=== PATIENT | female | born 1990 | race Caucasian/White ===

== ENCOUNTER 2017-02-26 14:45 | Emergency (ER) | payer OTHER ==
--- NOTE | 2017-02-26 15:21 | UC ---
Throat Pain/Nasal César HPI - HPI Summary HPI Summary: sore throat, head congested, watery eyes, no fevers has been going for 3 days - History of Current Complaint Chief Complaint: UCRespiratory Stated Complaint: SORE THROAT,BLURRY VISION Time Seen by Provider: 02/26/17 15:08 Hx Obtained From: Patient Hx Last Menstrual Period: iud fell out? ?: No Onset/Duration: Sudden Onset, Lasting Days - 3, Still Present Severity: Moderate Pain Intensity: 5 Pain Scale Used: 0-10 Numeric Cough: Nonproductive Associated Signs & Symptoms: Positive: Nasal Discharge - Allergies/Home Medications Allergies/Adverse Reactions: Allergies Allergy/AdvReac Type Severity Reaction Status Date / Time No Known Allergies Allergy Verified 10/18/16 10:45 PMH/Surg Hx/FS Hx/Imm Hx Previously Healthy: No GI/ History Of: Reports: Gastroesophageal Reflux - Surgical History Surgical History: Yes Surgery Procedure, Year, and Place: tonsils; adenoids; tubes in ears 4 times. D &C - Family History Known Family History: Positive: None, Hypertension - Social History Occupation: Unemployed Lives: With Family Alcohol Use: None Substance Use Type: None Smoking Status (MU): Light Every Day Tobacco Smoker Type: Cigarettes Amount Used/How Often: 6 cig a day Length of Time of Smoking/Using Tobacco: 11 years Cessation Counseling: Patient Advised to Stop - Immunization History Most Recent Influenza Vaccination: 2012 Review of Systems Constitutional: Fatigue Skin: Negative Eyes: Negative, Drainage - clear ENT: Sore Throat, Ear Ache, Nasal Discharge Respiratory: Cough Cardiovascular: Negative Gastrointestinal: Negative Genitourinary: Negative Motor: Negative Neurovascular: Negative Musculoskeletal: Negative Neurological: Negative Psychological: Negative All Other Systems Reviewed And Are Negative: Yes Physical Exam Triage Information Reviewed: Yes Appearance: Well-Appearing, No Pain Distress, Obese Vital Signs: Initial Vital Signs Temp 97.4 F 02/26/17 15:04 Pulse 98 02/26/17 15:04 Resp 18 02/26/17 15:04 Pulse Ox 98 02/26/17 15:04 Vital Signs Reviewed: Yes Eye Exam: Normal Eyes: Positive: Conjunctiva Clear ENT Exam: Normal ENT: Positive: Normal ENT inspection, Hearing grossly normal, Pharynx normal, Nasal congestion, Nasal drainage, TMs normal. Negative: Tonsillar swelling, Tonsillar exudate, Trismus, Muffled/hoarse voice Dental Exam: Normal Neck exam: Normal Neck: Positive: Supple, Nontender, No Lymphadenopathy Respiratory Exam: Normal Respiratory: Positive: Chest non-tender, Lungs clear, Normal breath sounds, No respiratory distress, No accessory muscle use Cardiovascular Exam: Normal Cardiovascular: Positive: RRR, No Murmur, Pulses Normal, Brisk Capillary Refill Musculoskeletal Exam: Normal Musculoskeletal: Positive: Strength Intact, ROM Intact, No Edema Neurological Exam: Normal Neurological: Positive: Alert, Muscle Tone Normal Psychological Exam: Normal Skin Exam: Normal Diagnostics - Laboratory Diagnostic Studies Completed/Ordered: u preg (-), RST (-) Throat Pain/Nasal Course/Dx - Course Assessment/Plan: flonase, mucinex D, increase fluids, follow with pcp - Differential Dx/Diagnosis Differential Diagnosis/HQI/PQRI: Laryngitis, Pharyngitis, Sinusitis, URI Provider Diagnoses: Allergic Rhinitis Discharge - Discharge Plan Condition: Stable Disposition: HOME Prescriptions: Cetirizine-Pseudoephedrine [Zyrtec-D Allergy/Congesti] 1 tab PO BID #30 tab Fluticasone NASAL SPRAY 50MCG* [Flonase NASAL SPRAY 50MCG*] 2 spray BOTH NARES DAILY #1 btl Patient Education Materials: Decongestant/Expectorant (By mouth), Allergic Rhinitis (ED), How to Use Nasal Weldon (ED) Referrals: Shyann Farr PA [Primary Care Provider] - 4 Days
== END 2017-02-26 16:16 | disposition home or self-care (01) ==
LOC: UCEAST 14:45
DX: J30.9 Allergic rhinitis, unspecified (principal); K21.9 Gastro-esophageal reflux disease without esophagitis; F17.210 Nicotine dependence, cigarettes, uncomplicated
CPT/HCPCS: 84702; 87651; 99212; G0463

== ENCOUNTER 2017-07-12 14:47 | Inpatient (IN) | payer OTHER ==
[2017-07-12 16:16] LABS: Hematocrit 42 % (35-47); Hemoglobin 13.9 g/dl (12.0-16.0); Mean Corpuscular HGB Conc 33 g/dl (31-36); Mean Corpuscular Hemoglobin 28 pg (27-31); Mean Corpuscular Volume 84 fL (80-97); Mean Platelet Volume 9 um3 (7.4-10.4); Red Blood Count 5.01 10^6/ul (4.0-5.4); Red Cell Distribution Width 14 % (10.5-15); White Blood Count 7.9 10^3/ul (3.5-10.8)
[2017-07-12 16:31] LABS: ALT 28 U/L (7-52); AST 19 U/L (13-39); Albumin 4.3 g/dL (3.2-5.2); Alkaline Phosphatase 71 U/L (34-104); Anion Gap 6 mmol/L (2-11); BUN/Creatinine Ratio 13.3 (8-20); Blood Urea Nitrogen 10 mg/dL (6-24); CO2 Carbon Dioxide 27 mmol/L (22-32); Calcium 9.4 mg/dL (8.6-10.3); Chloride 102 mmol/L (101-111); EGFR African American 119.2 (>60); EGFR Non-African American 92.7 (>60); Globulin 3.2 g/dL (2-4); Glucose 93 mg/dL (70-100); Potassium 3.7 mmol/L (3.5-5.0); Sodium 135 mmol/L (133-145); Total Protein 7.5 g/dL (6.4-8.9)
[2017-07-12 16:33] LABS: Urine Bacteria Absent (Absent); Urine Bilirubin Negative (Negative); Urine Glucose Negative (Negative); Urine Nitrite Negative (Negative)
[2017-07-12 16:51] LABS: Benzodiazepine Urine Screen None Detected (None Detect)
[2017-07-12 16:52] LABS: Acetaminophen < 15 mcg/mL; Alcohol < 10 mg/dL (<10); Salicylate < 2.50 mg/dL (<30)
[2017-07-12 16:59] LABS: TSH (Thyroid Stimulating Horm) 1.85 mcIU/mL (0.34-5.60)
[2017-07-12] MEDS ORDERED: Acetaminophen TAB* 325 MG PO ONE (17:14)
--- NOTE | 2017-07-12 17:14 | ED ---
Psychiatric Complaint - HPI Summary HPI Summary: Patient presents to the ED with CC of depression and anxiety which has been worsening over the last few months. She takes prozac daily but has been out for a few months d/t insurance. She also is not currently seeing a therapist or psychiatrist. Denies SI/HI currently but has experienced thoughts and attempts of suicide in the past including running out in front of a car, attempt at hanging herself and other thoughts which she has not yet attempted. Denies any plan today. Denies any self harm. She takes multiple medications, but is currently not on her prozac or her trazodone. Notes to difficulty sleeping. Physical pain includes HECTOR and she is requesting tylenol. - History Of Current Complaint Chief Complaint: EDMentalHealth Time Seen by Provider: 07/12/17 15:11 Hx Obtained From: Patient Hx Last Menstrual Period: iud fell out? ?: No Onset/Duration: Gradual Onset Timing: Constant Severity Initially: Moderate Severity Currently: Moderate Character: Depressed, Anxious Aggravating Factor(s): Medication Non-compliance - does not currently have a rx Related History: Positive For: Prior Psychiatric Issues Has Suicidal: Reports: Thoughts, Has Prior Attempt(s) - Risk Factor(s) Completed Suicide Risk Factors: White [place]ian, Unemployed, Past Suicide Attempt - Allergies/Home Medications Allergies/Adverse Reactions: Allergies Allergy/AdvReac Type Severity Reaction Status Date / Time No Known Allergies Allergy Verified 10/18/16 10:45 PMH/Surg Hx/FS Hx/Imm Hx Previously Healthy: Yes - Surgical History Surgery Procedure, Year, and Place: tonsils; adenoids; tubes in ears 4 times. D &C - Immunization History Hx Pertussis Vaccination: No Immunizations Up to Date: Unable to Obtain/Confirm Infectious Disease History: No Infectious Disease History: Denies: Traveled Outside the [place] in Last 30 Days - Family History Known Family History: Positive: None, Hypertension - Social History Occupation: Unemployed Lives: With Family Alcohol Use: None Hx Substance Use: No Substance Use Type: Reports: None Hx Tobacco Use: Yes Smoking Status (MU): Light Every Day Tobacco Smoker Type: Cigarettes Amount Used/How Often: 6 cig a day Length of Time of Smoking/Using Tobacco: 11 years Review of Systems Constitutional: Negative Negative: Fever, Chills, Fatigue ENT: Negative Respiratory: Negative Gastrointestinal: Negative Positive: no symptoms reported, see HPI Musculoskeletal: Negative Positive: Headache Positive: Anxious, Depressed All Other Systems Reviewed And Are Negative: Yes Physical Exam Triage Information Reviewed: Yes Vital Signs On Initial Exam: Initial Vitals Temp Pulse Resp BP Pulse Ox 97.9 F 86 20 171/91 98 07/12/17 15:07 07/12/17 15:07 07/12/17 15:07 07/12/17 15:07 07/12/17 15:07 Vital Signs Reviewed: Yes Appearance: Positive: Well-Appearing, Well-Nourished Skin: Positive: Warm, Skin Color Reflects Adequate Perfusion Head/Face: Positive: Normal Head/Face Inspection Eyes: Positive: EOMI, CLAUDY, Conjunctiva Clear Neck: Positive: Supple, No Lymphadenopathy Respiratory/Lung Sounds: Positive: Clear to Auscultation, Breath Sounds Present Cardiovascular: Positive: RRR, Pulses are Symmetrical in both Upper and Lower Extremities Musculoskeletal: Positive: Normal, Strength/ROM Intact Neurological: Positive: Speech Normal Psychiatric: Positive: Normal - Antonieta Coma Scale Coma Scale Total: 15 Diagnostics - Vital Signs Vital Signs Temp Pulse Resp BP Pulse Ox 07/12/17 16:52 98.2 F 76 16 140/87 99 07/12/17 16:10 98.5 F 93 16 132/92 98 07/12/17 15:07 97.9 F 86 20 171/91 98 - Laboratory Lab Results: Lab Results 07/12/17 07/12/17 07/12/17 Range/Units 15:10 15:10 16:05 WBC (3.5-10.8) 10^3/ul RBC (4.0-5.4) 10^6/ul Hgb (12.0-16.0) g/dl Hct (35-47) % MCV (80-97) fL MCH (27-31) pg MCHC (31-36) g/dl RDW (10.5-15) % Plt Count (150-450) 10^3/ul MPV (7.4-10.4) um3 Neut % (Auto) (38-83) % Lymph % (Auto) (25-47) % [place] % (Auto) (1-9) % Eos % (Auto) (0-6) % Baso % (Auto) (0-2) % Absolute Neuts (auto) (1.5-7.7) 10^3/ul Absolute Lymphs (auto) (1.0-4.8) 10^3/ul Absolute Monos (auto) (0-0.8) 10^3/ul Absolute Eos (auto) (0-0.6) 10^3/ul Absolute Basos (auto) (0-0.2) 10^3/ul Absolute Nucleated RBC 10^3/ul Nucleated RBC % Sodium 135 (133-145) mmol/L Potassium 3.7 (3.5-5.0) mmol/L Chloride 102 (101-111) mmol/L Carbon Dioxide 27 (22-32) mmol/L Anion Gap 6 (2-11) mmol/L BUN 10 (6-24) mg/dL Creatinine 0.75 (0.51-0.95) mg/dL Est GFR ( Amer) 119.2 (>60) Est GFR (Non-Af Amer) 92.7 (>60) BUN/Creatinine Ratio 13.3 (8-20) Glucose 93 (70-100) mg/dL Calcium 9.4 (8.6-10.3) mg/dL Total Bilirubin 0.40 (0.2-1.0) mg/dL AST 19 (13-39) U/L ALT 28 (7-52) U/L Alkaline Phosphatase 71 (34-104) U/L Total Protein 7.5 (6.4-8.9) g/dL Albumin 4.3 (3.2-5.2) g/dL Globulin 3.2 (2-4) g/dL Albumin/Globulin Ratio 1.3 (1-3) TSH 1.85 (0.34-5.60) mcIU/mL Urine Color Straw Urine Appearance Clear Urine pH 7.0 (5-9) Ur Specific [place] 1.010 (1.010-1.030) Urine Protein Negative (Negative) Urine Ketones Negative (Negative) Urine Blood Negative (Negative) Urine Nitrate Negative (Negative) Urine Bilirubin Negative (Negative) Urine Urobilinogen Negative (Negative) Ur Leukocyte Esterase Trace H (Negative) Urine WBC (Auto) Trace(0-5/hpf) (Absent) Urine RBC (Auto) Absent (Absent) Ur Squamous Epith Cells Present H (Absent) Urine Bacteria Absent (Absent) Urine Glucose Negative (Negative) Salicylates < 2.50 (<30) mg/dL Urine Opiates Screen None detected (None Detect) Acetaminophen < 15 mcg/mL Ur Barbiturates Screen None detected (None Detect) Ur Phencyclidine Scrn None detected (None Detect) Ur Amphetamines Screen None detected (None Detect) U Benzodiazepines Scrn None detected (None Detect) Urine Cocaine Screen None detected (None Detect) U Cannabinoids Screen Presumptive positive H (None Detect) Serum Alcohol < 10 (<10) mg/dL 07/12/17 Range/Units 16:05 WBC 7.9 (3.5-10.8) 10^3/ul RBC 5.01 (4.0-5.4) 10^6/ul Hgb 13.9 (12.0-16.0) g/dl Hct 42 (35-47) % MCV 84 (80-97) fL MCH 28 (27-31) pg MCHC 33 (31-36) g/dl RDW 14 (10.5-15) % Plt Count 241 (150-450) 10^3/ul MPV 9 (7.4-10.4) um3 Neut % (Auto) 63.3 (38-83) % Lymph % (Auto) 26.8 (25-47) % [place] % (Auto) 4.0 (1-9) % Eos % (Auto) 5.4 (0-6) % Baso % (Auto) 0.5 (0-2) % Absolute Neuts (auto) 5.0 (1.5-7.7) 10^3/ul Absolute Lymphs (auto) 2.1 (1.0-4.8) 10^3/ul Absolute Monos (auto) 0.3 (0-0.8) 10^3/ul Absolute Eos (auto) 0.4 (0-0.6) 10^3/ul Absolute Basos (auto) 0 (0-0.2) 10^3/ul Absolute Nucleated RBC 0.04 10^3/ul Nucleated RBC % 0.5 Sodium (133-145) mmol/L Potassium (3.5-5.0) mmol/L Chloride (101-111) mmol/L Carbon Dioxide (22-32) mmol/L Anion Gap (2-11) mmol/L BUN (6-24) mg/dL Creatinine (0.51-0.95) mg/dL Est GFR ( Amer) (>60) Est GFR (Non-Af Amer) (>60) BUN/Creatinine Ratio (8-20) Glucose (70-100) mg/dL Calcium (8.6-10.3) mg/dL Total Bilirubin (0.2-1.0) mg/dL AST (13-39) U/L ALT (7-52) U/L Alkaline Phosphatase (34-104) U/L Total Protein (6.4-8.9) g/dL Albumin (3.2-5.2) g/dL Globulin (2-4) g/dL Albumin/Globulin Ratio (1-3) TSH (0.34-5.60) mcIU/mL Urine Color Urine Appearance Urine pH (5-9) Ur Specific [place] (1.010-1.030) Urine Protein (Negative) Urine Ketones (Negative) Urine Blood (Negative) Urine Nitrate (Negative) Urine Bilirubin (Negative) Urine Urobilinogen (Negative) Ur Leukocyte Esterase (Negative) Urine WBC (Auto) (Absent) Urine RBC (Auto) (Absent) Ur Squamous Epith Cells (Absent) Urine Bacteria (Absent) Urine Glucose (Negative) Salicylates (<30) mg/dL Urine Opiates Screen (None Detect) Acetaminophen mcg/mL Ur Barbiturates Screen (None Detect) Ur Phencyclidine Scrn (None Detect) Ur Amphetamines Screen (None Detect) U Benzodiazepines Scrn (None Detect) Urine Cocaine Screen (None Detect) U Cannabinoids Screen (None Detect) Serum Alcohol (<10) mg/dL Result Diagrams: 07/12/17 16:05 07/12/17 16:05 Lab Statement: Any lab studies that have been ordered have been reviewed, and results considered in the medical decision making process. Course/Dx - Course Course Of Treatment: Patient evaluted for recent stressors, medication non- compliance and depression and anxiety. She notes to a HECTOR. Tylenol given 650mg. - Differential Dx/Clinical Impression Differential Diagnosis/HQI/PQRI: Positive: Anxiety, Depression, Suicidal Ideation Provider Diagnosis: Depression Discharge - Discharge Plan Condition: Stable Disposition: OTHER Discharge Disposition Comment: to flex unit
[2017-07-13] MEDS ORDERED: Acetaminophen TAB* 325 MG ONE (00:04)
[2017-07-13] MEDS ORDERED: chlorproMAZINE TAB* 50 MG ONE (00:04)
[2017-07-13] MEDS ORDERED: diPHENhydraMINE PO* 50 MG ONE (00:04)
[2017-07-13] MEDS ORDERED: Al Hydrox/Mg Hydrox/Simet LIQ* 30 ML UDC PO PRN (01:18)
[2017-07-13] MEDS ORDERED: Mouth Piece, Nicotine* 1 EACH CARTRIDGE INH SCH (01:18)
[2017-07-13] MEDS ORDERED: chlorproMAZINE TAB* 50 MG Q6H PRN AGITATION PO (01:18)
[2017-07-13] MEDS ORDERED: Nicotine Inhaler* 10 MG AMP INH PRN (01:18)
[2017-07-13] MEDS ORDERED: Nicotine GUM* 2 MG PO PRN (01:18)
[2017-07-13] MEDS: Vitamin THERAPEUTIC TAB PO SCH (10:23)
[2017-07-13] MEDS ORDERED: traZODone TAB* 50 MG TAB PO PRN (12:19)
[2017-07-13] MEDS: Acetaminophen TAB* 325 MG PO PRN (12:33)
[2017-07-13] MEDS: FLUoxetine CAP* 20 MG PO SCH (13:23)
[2017-07-13] MEDS: Fluticasone NASAL SPRAY 50MCG* 16 gm SPRAY BTL BOTH NARES SCH (13:23)
[2017-07-13] MEDS: Cetirizine* 10 MG TAB PO SCH (13:23)
[2017-07-13] MEDS: Omeprazole CAP* 20 MG PO SCH ×2 (13:23→20:40)
[2017-07-13] MEDS: Topiramate TAB(*) 25 MG PO SCH ×2 (13:23→20:40)
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
[2017-07-14] MEDS: Acetaminophen TAB* 325 MG PO PRN (06:38)
[2017-07-14] MEDS: Fluticasone NASAL SPRAY 50MCG* 16 gm SPRAY BTL BOTH NARES SCH (10:14)
[2017-07-14] MEDS: FLUoxetine CAP* 20 MG PO SCH (10:14)
[2017-07-14] MEDS: Omeprazole CAP* 20 MG PO SCH ×2 (10:15→20:50)
[2017-07-14] MEDS: Cetirizine* 10 MG TAB PO SCH (10:15)
[2017-07-14] MEDS: Vitamin THERAPEUTIC TAB PO SCH (10:15)
[2017-07-14] MEDS: Topiramate TAB(*) 25 MG PO SCH ×2 (10:15→20:50)
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
[2017-07-15] MEDS: Fluticasone NASAL SPRAY 50MCG* 16 gm SPRAY BTL BOTH NARES SCH (08:38)
[2017-07-15] MEDS: Omeprazole CAP* 20 MG PO SCH (08:40)
[2017-07-15] MEDS: FLUoxetine CAP* 20 MG PO SCH (08:40)
[2017-07-15] MEDS: Cetirizine* 10 MG TAB PO SCH (08:40)
[2017-07-15] MEDS: Topiramate TAB(*) 25 MG PO SCH (08:41)
[2017-07-15] MEDS: Vitamin THERAPEUTIC TAB PO SCH (08:41)
[2017-07-15 08:50] VITALS: BP 142/86
--- NOTE | 2017-07-15 15:44 | CONS ---
PSYCHOLOGICAL REPORT: DATE OF CONSULTATION: 07/15/17. REASON FOR REFERRAL: Flori was referred for psychological testing secondary to concerns regarding characterological vulnerabilities and severity of depression. TESTS ADMINISTERED: Flori completed the [place] Multiphasic Personality Inventory-2 (MMPI-2), and was given feedback regarding testing results in individual conversation. BEHAVIORAL OBSERVATIONS: Flori is a 27-year-old obese female who presents with increasing emotion duress which was exacerbated by problematic relationship with her biological mother. Her mother has custody of her son, which is a complicated factor in the family dynamics. Currently Flori is expressing hopes of establishing better boundaries between she and her mother describing how she intends to live with her boyfriend, but remains constrained in her relationship with her mother secondary to access to her son. Flori describes how her mother treats her son quite well, but is very condescending to her and insulting at times. Flori presents with good affect and exhibits appropriate variation in affect. She is hard of hearing, so conversation needs to be quite direct in order for her to understand comments. 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 She expressed hopes of attaining a GED and returning to the work force when she is able. Flori clearly described better managing depression when she was gainfully employed, and currently describes her strained relationship with her mother as her primary difficulty in managing depressive features. Presently, she denies experiencing suicidal affect and as stated spontaneously describes her social goals and interest. TEST RESULTS: Flori elevates the 3 emotional duress scales on validity indicators of the MMPI-2 obtaining T-scores between 78 and 90. She concomitantly has extreme basal scores occurring on emotional coping and self- esteem scales with T-scores here ranging between 32 and 34. She elevates the depression scale as well as the anxiety scale to similar degrees (T=67) and has somewhat higher elevation on the schizophrenia scale (T=72). She also has minor elevations on psychopathic deviate and social introversion scales. IMPRESSION AND RECOMMENDATIONS: Discussion with Flori addressed depression and anxiety in forthright fashion, describing how her endorsement of cynical and pessimistic thoughts and feelings may be the etiology of her difficulties. Likewise, further discussion addressed the very low scoring on emotional coping and self-esteem scales, with feedback addressing the importance of finding ways to improve self image and sense of competencies. This led to discussion regarding her vocational interest and how she has done better historically when she was working. Concerns regarding lethality impresses as being ameliorated presently with her manageable endorsement occurring on the depression scale as well as the presentation. She impresses as having good insight regarding the self-esteem concerns and relates family duress as a contributing factor in this regard. Continuing treatment may do well to address remote historical difficulties and family origin, which are likely to reveal some posttraumatic stress type problems. Diagnostic impression support PTSD as well as historical diagnosis of a bipolar 2 disorder. Hearing loss remains problematic as well as psychosocial stressors secondary to living situations and financial strain. Flori impresses as a good candidate to benefit from emotionally supportive psychotherapies and treatment modalities. [id number]/CPS #: [id number] MTDD
--- NOTE | 2017-07-16 07:35 | DS ---
AMENDED REPORT NOW INCLUDES COSIGNER DESIGNATION - ESIGNED BEFORE ADJUSTMENTS CC: Dr. Bliss; [facility] * DISCHARGE SUMMARY: DATE OF ADMISSION: 07/12/17 DATE OF DISCHARGE: 07/15/17 SUPERVISING PSYCHIATRIST: Dr. Nicola Dye * (DICTATED BY CATRINA STYLES) DISCHARGE DIAGNOSES: [place] I: Major depressive disorder, posttraumatic stress disorder; cannabis use disorder. [place] II: Deferred. [place] III: Obesity, gastroesophageal reflux disease, and hard of hearing. [place] IV: Stressors related to housing and financial strain, interpersonal relationships. [place] V: 60. CONDITION AT TIME OF DISCHARGE: Improved. The patient reports she is "excited to leave." While on the unit, she had discussed housing situations with both a friend of hers and with her boyfriend. She states she has researched ways in order to no longer have to live with her mother. She has identified coping skills to use when anxious including listening music, crocheting, cleaning, using coloring books, and going for walks. She denies suicidal ideation. She denies depression. She reports anxiety, strictly related to discharge planning and transportation. She is informed that she can leave anytime today depending on when her friend can pick her up. She and her friend decided upon 1 p.m. MENTAL STATUS EXAM: The patient is well-groomed, wearing eye makeup, hair is pulled back into a ponytail. She is wearing her own clothing. She is cooperative and pleasant, talkative. She is alert and oriented x3. Her concentration is good. Her recall is 3/3. Her mood is "excited." Her affect is full range. Her speech is rapid and loud volume, which is baseline for her due to hard of hearing. Thought process is circumstantial in regards to being able to leave and move out of her mother's home. Content of thought is negative for AV hallucinations, SI, HI, and . Her insight is good, her judgment is fair. Fund of knowledge is good. DISCHARGE MEDICATIONS: Instructions are given to the patient by nursing staff. The following medications were electronically prescripted to the [facility] in [place]: 1. Zyrtec-D one tab daily. 2. Fluoxetine 40 mg daily. 3. Flonase nasal spray, 2 sprays both nares daily. 4. Omeprazole 20 mg b.i.d. before meals. 5. Topiramate 50 mg p.o. b.i.d. 6. Trazodone 50 mg p.o. at bedtime p.r.n. insomnia. DIET: Regular. ACTIVITY: Ambulation as tolerated. Tobacco cessation declined by the patient. There are no pending labs or diagnostic studies at the time of discharge. FOLLOWUP CARE: The patient was given appointments from planner schedulerBianca. She will follow up at [facility] and has an appointment on 07/22/17, at 10. a.m. with Amelie Clifford. She will follow up with Dr. Bliss on 07/26/17, at 9:30 a.m. HOSPITAL COURSE: A. Reason for admission: The patient presented to the emergency room with increased depressive symptoms, vague SI, and she denied to give contact information to obtain collateral with her mother. Therefore, level of safety at discharge could not be determined. The patient was admitted on status to behavioral services unit for immediate safety as she was not okay. B. Psychiatric treatment rendered: The patient was admitted to the behavioral services unit and converted to voluntary status. Her code status was full. She was placed on 15-minute checks for safety. She was encouraged to participate in supportive milieu and individual and group psychoeducation. She agreed to reinstate her most recent outpatient medications that she had not been taking them consistently. She reported barriers with access to mental health and medical care. She states that she has had a lapse in Medicaid insurance, but this has since been resolved. She agreed to follow up with [facility] and her primary care provider. Observation status was decreased to q.30-minute observation. She was allowed to go on staff pass. She spoke with her boyfriend and her friend about her primary stressor of living with her mother. She is expecting to move to her boyfriend' s apartment and has verified with the landlord that this is allowed. She will also check with boyfriend's [address] to see if she can move in with him permanently. The patient was safe on all checks. She denied suicidal ideation. She participated in programming and she reported readiness for discharge. She identified a friend who could give her a ride and pick her up and was given discharge instructions by the nursing staff. WALLACE ESPARZA NP [id number]/[facility] #: [id number] [facility] HOSPITALSandip
== END 2017-07-15 13:15 | disposition home or self-care (01) | DRG 754 ==
LOC: ED 14:47 → BSU 07-13 01:01
PROVIDERS: ADMIT Psychiatry & Neurology Psychiatry; ATTEND Psychiatry & Neurology Psychiatry
DX: F32.9 Major depressive disorder, single episode, unspecified (principal); E66.01 Morbid (severe) obesity due to excess calories; R45.851 Suicidal ideations; F43.10 Post-traumatic stress disorder, unspecified; F12.10 Cannabis abuse, uncomplicated; K21.9 Gastro-esophageal reflux disease without esophagitis; F17.210 Nicotine dependence, cigarettes, uncomplicated; Z68.39 Body mass index [BMI] 39.0-39.9, adult; Z79.899 Other long term (current) drug therapy; Z81.1 Family history of alcohol abuse and dependence; Z81.8 Family history of other mental and behavioral disorders
CPT/HCPCS: 36415; 80053; 80307; 80320; 80329; 81003; 81015; 84443; 85025; 87077; 87086; 87186; 99406; A9270-GY; G0480

== ENCOUNTER 2017-10-29 19:33 | Emergency (ER) | payer OTHER ==
[2017-10-29] MEDS ORDERED: Ondansetron INJ* 2 MG/ML VIAL IV ONE (20:22)
[2017-10-29] MEDS ORDERED: NS 0.9% 1000 ML* 2,000 ML IV ONE (20:22)
[2017-10-29 21:35] LABS: Urine Bacteria 3+ (Absent); Urine Bilirubin Negative (Negative); Urine Glucose Negative (Negative); Urine Nitrite Negative (Negative)
--- NOTE | 2017-10-29 21:35 | RAD ---
Indication: Upper abdominal pain. Real-time sonography of the right upper quadrant was performed. The liver measures 22 cm in length and is enlarged. It is diffusely increased in echogenicity consistent with hepatic steatosis. No focal lesions or intrahepatic ductal dilatation is noted. The gallbladder demonstrates no gallstones, pericholecystic fluid or wall thickening. The common duct measures 5 mm. Right kidney measures 12.3 x 5.5 x 4.8 cm with no hydronephrosis. The pancreas head, neck and proximal body demonstrates no mass or pancreatic duct dilatation. IMPRESSION: Hepatomegaly. Diffusely increased echogenicity of the liver consistent with hepatic steatosis. No evidence of cholelithiasis or biliary duct dilatation is noted.
[2017-10-29 22:22] LABS: Hematocrit 38 % (35-47); Hemoglobin 12.7 g/dl (12.0-16.0); Mean Corpuscular HGB Conc 33 g/dl (31-36); Mean Corpuscular Hemoglobin 28 pg (27-31); Mean Corpuscular Volume 84 fL (80-97); Mean Platelet Volume 9 um3 (7.4-10.4); Red Blood Count 4.56 10^6/ul (4.0-5.4); Red Cell Distribution Width 14 % (10.5-15); White Blood Count 8.4 10^3/ul (3.5-10.8)
[2017-10-29 22:29] LABS: ALT 19 U/L (7-52); Albumin 4.2 g/dL (3.2-5.2); Alkaline Phosphatase 70 U/L (34-104); BUN/Creatinine Ratio 13.3 (8-20); Blood Urea Nitrogen 12 mg/dL (6-24); C Reactive Protein 9.03 mg/L (< 5.00); CO2 Carbon Dioxide 27 mmol/L (22-32); Calcium 9.3 mg/dL (8.6-10.3); Chloride 102 mmol/L (101-111); EGFR African American 96.6 (>60); EGFR Non-African American 75.1 (>60); Globulin 3.3 g/dL (2-4); Glucose 110 mg/dL (70-100); Lipase 14 U/L (11.0-82.0); Sodium 136 mmol/L (133-145); Total Protein 7.5 g/dL (6.4-8.9)
[2017-10-29 23:08] LABS: Anion Gap 7 mmol/L (2-11)
[2017-10-29] MEDS ORDERED: Sulfamethox/Trimethoprim DS 800/160* TAB PO ONE ×2 (23:13→23:14)
[2017-10-29] MEDS ORDERED: O ndansetron ODT 4MG 2TAB PRPK 4 MG PAK PO ONE (23:15)
--- NOTE | 2017-10-29 23:20 | ED ---
Magen Roy Natalie, scribed for Amado Hilario MD on 10/29/17 at 2027 . Abdominal Pain/Female - HPI Summary HPI Summary: The pt is a 27 y/o F presenting to the ED c/o diarrhea since 10/26/17 and abd pain starting this afternoon. The pain is in epigastric region and lower abd while going to the bathroom. The pain is rated 9/10. The pain is aggravated by nothing and is alleviated after going to the bathroom. She has had diarrhea four times today with having to stay in the bathroom for an hour at a time. The diarrhea is described as being loose without blood. Pt additionally c/o nausea, vomiting, lightheadedness, back pain, dysuria, and decreased appetite. The pt also hurt her right ankle after tripping on a rock. She has hx of GERD. She has never had an appendectomy or gallbladder removal. Her LNMP 10/20/17. - History of Current Complaint Chief Complaint: EDNauseaVomitDiarrh Stated Complaint: DIARRHEA X4 DAYS, RIGHT FOOT INJURY Time Seen by Provider: 10/29/17 20:11 Hx Obtained From: Patient Hx Last Menstrual Period: iud fell out? Onset/Duration: Lasting Days - diarrhea started on 10/26/17, abd pain started today, Still Present Timing: Constant Severity Initially: Severe Severity Currently: Severe Pain Intensity: 9 Pain Scale Used: 0-10 Numeric Location: Epigastric Character: Other: - "needlesticks and razor blades" Aggravating Factor(s): Nothing Alleviating Factor(s): Bowel Movement Associated Signs and Symptoms: Positive: Back Pain, Urinary Symptoms - dysuria, Decreased Appetite, Nausea, Vomiting, Diarrhea, Other: - POSITIVE: lightheadedness, edema in right ankle. Negative: Blood in Stool Allergies/Adverse Reactions: Allergies Allergy/AdvReac Type Severity Reaction Status Date / Time No Known Allergies Allergy Verified 10/18/16 10:45 PMH/Surg Hx/FS Hx/Imm Hx Previously Healthy: No GI History: Reports: Hx Gastroesophageal Reflux Disease Sensory History: Reports: Hx Contacts or Glasses - glasses, Hx Hearing Problem Denies: Hx Hearing Aid Opthamlomology History: Reports: Hx Contacts or Glasses - glasses Psychiatric History: Reports: Hx Anxiety, Hx Depression, Hx Inpatient Treatment , Hx Community Mental Health Tx, Hx Bipolar Disorder - Surgical History Surgery Procedure, Year, and Place: tonsils; adenoids; tubes in ears 4 times. D &C Infectious Disease History: No Infectious Disease History: Denies: Traveled Outside the [place] in Last 30 Days - Family History Known Family History: Positive: Hypertension Negative: Respiratory Disease - Social History Alcohol Use: Rare Hx Substance Use: No Substance Use Type: Reports: Marijuana Hx Tobacco Use: Yes Smoking Status (MU): Light Every Day Tobacco Smoker Type: Cigarettes Amount Used/How Often: 6 cig a day Length of Time of Smoking/Using Tobacco: 11 years Have You Smoked in the Last Year: Yes Review of Systems Positive: Abdominal Pain - epigastric region, Vomiting, Diarrhea, Nausea, Other - NEGATIVE: blood in stool Positive: dysuria Positive: Edema - in right foot, Other - back pain Neurological: Other - lightheadedness All Other Systems Reviewed And Are Negative: Yes Physical Exam Triage Information Reviewed: Yes Vital Signs On Initial Exam: Initial Vitals Temp Pulse Resp BP Pulse Ox 97.4 F 75 18 159/79 97 10/29/17 19:37 10/29/17 19:37 10/29/17 19:37 10/29/17 19:37 10/29/17 19:37 Vital Signs Reviewed: Yes Appearance: Positive: Well-Appearing, No Pain Distress Skin: Positive: Warm, Skin Color Reflects Adequate Perfusion, Dry Head/Face: Positive: Normal Head/Face Inspection Eyes: Positive: EOMI, CLAUDY ENT: Positive: Normal ENT inspection Neck: Positive: Supple, Nontender Respiratory/Lung Sounds: Positive: Clear to Auscultation, Breath Sounds Present Cardiovascular: Positive: RRR Abdomen Description: Positive: Other: - mild tenderness in epigastrium Bowel Sounds: Positive: Present Musculoskeletal: Positive: Normal, Strength/ROM Intact, Other - edema in right malleolus which is tender to palpitation Neurological: Positive: Normal, Sensory/Motor Intact, Alert, Oriented to Person Place, Time Psychiatric: Positive: Affect/Mood Appropriate Diagnostics - Vital Signs Vital Signs Temp Pulse Resp BP Pulse Ox 10/29/17 19:37 97.4 F 75 18 159/79 97 - Laboratory Lab Results: Lab Results 10/29/17 10/29/17 10/29/17 Range/Units 20:41 21:45 21:45 WBC 8.4 (3.5-10.8) 10^3/ul RBC 4.56 (4.0-5.4) 10^6/ul Hgb 12.7 (12.0-16.0) g/dl Hct 38 (35-47) % MCV 84 (80-97) fL MCH 28 (27-31) pg MCHC 33 (31-36) g/dl RDW 14 (10.5-15) % Plt Count 270 (150-450) 10^3/ul MPV 9 (7.4-10.4) um3 Neut % (Auto) 60.6 (38-83) % Lymph % (Auto) 29.1 (25-47) % Humphreys % (Auto) 4.1 (1-9) % Eos % (Auto) 5.2 (0-6) % Baso % (Auto) 1.0 (0-2) % Absolute Neuts (auto) 5.1 (1.5-7.7) 10^3/ul Absolute Lymphs (auto) 2.4 (1.0-4.8) 10^3/ul Absolute Monos (auto) 0.3 (0-0.8) 10^3/ul Absolute Eos (auto) 0.4 (0-0.6) 10^3/ul Absolute Basos (auto) 0.1 (0-0.2) 10^3/ul Absolute Nucleated RBC 0.01 10^3/ul Nucleated RBC % 0.1 INR (Anticoag Therapy) (0.77-1.02) Sodium 136 (133-145) mmol/L Potassium TNP Chloride 102 (101-111) mmol/L Carbon Dioxide 27 (22-32) mmol/L Anion Gap 7 (2-11) mmol/L BUN 12 (6-24) mg/dL Creatinine 0.90 (0.51-0.95) mg/dL Est GFR ( Amer) 96.6 (>60) Est GFR (Non-Af Amer) 75.1 (>60) BUN/Creatinine Ratio 13.3 (8-20) Glucose 110 H (70-100) mg/dL Lactic Acid (0.5-2.0) mmol/L Calcium 9.3 (8.6-10.3) mg/dL Total Bilirubin 0.40 (0.2-1.0) mg/dL AST TNP ALT 19 (7-52) U/L Alkaline Phosphatase 70 (34-104) U/L C-Reactive Protein 9.03 H (< 5.00) mg/L Total Protein 7.5 (6.4-8.9) g/dL Albumin 4.2 (3.2-5.2) g/dL Globulin 3.3 (2-4) g/dL Albumin/Globulin Ratio 1.3 (1-3) Lipase 14 (11.0-82.0) U/L Beta HCG, Quant < 0.60 mIU/mL Urine Color Pat Urine Appearance Cloudy Urine pH 6.0 (5-9) Ur Specific [place] 1.024 (1.010-1.030) Urine Protein 1+(30 mg/dl) H (Negative) Urine Ketones Negative (Negative) Urine Blood 1+ H (Negative) Urine Nitrate Negative (Negative) Urine Bilirubin Negative (Negative) Urine Urobilinogen Positive H (Negative) Ur Leukocyte Esterase Trace H (Negative) Urine WBC (Auto) 2+(11-20/hpf) H (Absent) Urine RBC (Auto) 1+(3-5/hpf) H (Absent) Ur Squamous Epith Cells Present H (Absent) Urine Bacteria 3+ H (Absent) Urine Glucose Negative (Negative) 10/29/17 10/29/17 Range/Units 21:45 21:45 WBC (3.5-10.8) 10^3/ul RBC (4.0-5.4) 10^6/ul Hgb (12.0-16.0) g/dl Hct (35-47) % MCV (80-97) fL MCH (27-31) pg MCHC (31-36) g/dl RDW (10.5-15) % Plt Count (150-450) 10^3/ul MPV (7.4-10.4) um3 Neut % (Auto) (38-83) % Lymph % (Auto) (25-47) % Humphreys % (Auto) (1-9) % Eos % (Auto) (0-6) % Baso % (Auto) (0-2) % Absolute Neuts (auto) (1.5-7.7) 10^3/ul Absolute Lymphs (auto) (1.0-4.8) 10^3/ul Absolute Monos (auto) (0-0.8) 10^3/ul Absolute Eos (auto) (0-0.6) 10^3/ul Absolute Basos (auto) (0-0.2) 10^3/ul Absolute Nucleated RBC 10^3/ul Nucleated RBC % INR (Anticoag Therapy) 0.90 (0.77-1.02) Sodium (133-145) mmol/L Potassium Chloride (101-111) mmol/L Carbon Dioxide (22-32) mmol/L Anion Gap (2-11) mmol/L BUN (6-24) mg/dL Creatinine (0.51-0.95) mg/dL Est GFR ( Amer) (>60) Est GFR (Non-Af Amer) (>60) BUN/Creatinine Ratio (8-20) Glucose (70-100) mg/dL Lactic Acid 1.3 (0.5-2.0) mmol/L Calcium (8.6-10.3) mg/dL Total Bilirubin (0.2-1.0) mg/dL AST ALT (7-52) U/L Alkaline Phosphatase (34-104) U/L C-Reactive Protein (< 5.00) mg/L Total Protein (6.4-8.9) g/dL Albumin (3.2-5.2) g/dL Globulin (2-4) g/dL Albumin/Globulin Ratio (1-3) Lipase (11.0-82.0) U/L Beta HCG, Quant mIU/mL Urine Color Urine Appearance Urine pH (5-9) Ur Specific [place] (1.010-1.030) Urine Protein (Negative) Urine Ketones (Negative) Urine Blood (Negative) Urine Nitrate (Negative) Urine Bilirubin (Negative) Urine Urobilinogen (Negative) Ur Leukocyte Esterase (Negative) Urine WBC (Auto) (Absent) Urine RBC (Auto) (Absent) Ur Squamous Epith Cells (Absent) Urine Bacteria (Absent) Urine Glucose (Negative) Result Diagrams: 10/29/17 21:45 10/29/17 21:45 Lab Statement: Any lab studies that have been ordered have been reviewed, and results considered in the medical decision making process. - Radiology Foot XR Xray Interpretation: No Acute Changes - No visible broken bones. ED physician has reviewed this report. Radiology Interpretation Completed By: Radiologist Ankle XR Xray Interpretation: No Acute Changes - No visible broken bones. ED physician has reviewed this report. Radiology Interpretation Completed By: Radiologist - Ultrasound No standard instances Ultrasound Interpretation: Positive (See Comments) - Gallbladder Ultrasound. Hepatomegaly. Diffusely increased echogenicity of the liver consistent with hepatic steatosis. No evidence of cholelithiasis or biliary duct dilatation is noted. ED physician has reviewed this report. Ultrasound Interpretation Completed By: Radiologist Abdominal Pain Fem Course/Dx - Course Course Of Treatment: BP is noted and advised to follow up with PCP. Medications reviewed. IMPROVED IN ED. DISCUSSED RESULTS WITH PATIENT. F/U PMD AND OBGYN; RETURN IF WORSE. - Diagnoses Provider Diagnoses: Right ankle sprain, Abdominal pain, Nausea vomiting and diarrhea, UTI (urinary tract infection), Urinary incontinence Discharge - Discharge Plan Condition: Stable Disposition: HOME Prescriptions: Ondansetron ODT TAB* [Zofran 4 MG Odt TAB*] 4 mg PO Q6H PRN #10 tab.odt PRN Reason: Nausea Sulfamethox/Trimethoprim DS* [Bactrim DS 800/160 TAB*] 1 tab PO BID #12 tab Patient Education Materials: Ankle Sprain (ED), Acute Diarrhea (ED), Acute Nausea and Vomiting (ED), Abdominal Pain (ED), Urinary Tract Infection in Women (ED), Urinary Incontinence (ED) Referrals: Abby Bliss MD [Primary Care Provider] - Additional Instructions: FOLLOW UP WITH YOUR PRIMARY CARE DOCTOR FOR YOUR UTI, DIARRHEA AND ANKLE SPRAIN. FOLLOW UP WITH YOUR OBGYN FOR YOUR CHRONIC DIFFICULTY WITH URINATION AND INCONTINENCE. RETURN TO THE EMERGENCY DEPARTMENT FOR ANY WORSENING OF YOUR CONDITION; PAIN, FEVER, YOU FEEL ILL OR QUESTIONS OR CONCERNS. The documentation as recorded by the Magen xie Natalie accurately reflects the service I personally performed and the decisions made by me, Amado Hilario MD.
[2017-10-30 00:29] VITALS: BP 174/98
--- NOTE | 2017-10-30 09:06 | RAD ---
Indication: Right foot injury. 3 views of the right foot demonstrates no fracture. Degenerative changes of the talonavicular joint is noted. No fracture is identified. IMPRESSION: Degenerative changes of the talonavicular joint without fracture.
--- NOTE | 2017-10-30 09:06 | RAD ---
Indication: Right ankle pain. 3 views of the right ankle demonstrate soft tissue swelling laterally. No fracture is identified. IMPRESSION: Soft tissue swelling laterally without fracture.
== END 2017-10-30 00:30 | disposition home or self-care (01) ==
LOC: ED 19:33
DX: R19.7 Diarrhea, unspecified (principal); R10.9 Unspecified abdominal pain; R11.2 Nausea with vomiting, unspecified; N39.0 Urinary tract infection, site not specified; R32 Unspecified urinary incontinence; S93.401A Sprain of unspecified ligament of right ankle, initial encounter; W18.49XA Other slipping, tripping and stumbling without falling, initial encounter; Y93.9 Activity, unspecified; Y92.9 Unspecified place or not applicable; Y99.9 Unspecified external cause status; F17.210 Nicotine dependence, cigarettes, uncomplicated
CPT/HCPCS: 36415; 76705; 80053; 81003; 81015; 82270; 83605; 83630; 83690; 84702; 85025; 85610; 86140; 86703; 87045; 87046; 87086; 87328; 87329; 87493; 87899; 99283; A9270-GY; J2405